=== PATIENT | male | born 1995 | race Caucasian/White ===

== ENCOUNTER 2022-12-07 10:01 | Emergency (ER) | payer MEDICAID ==
[~2022-12-07] VITALS: Ht 188 cm; Wt 127.0 kg
[2022-12-07 10:31] VITALS: TEMP 98.5; O2SAT 98
[2022-12-07] MEDS ORDERED: IBUP-2029 MT (12:22)
[2022-12-07] MEDS ORDERED: T3 PO (12:22)
[2022-12-07 12:30] VITALS: BP 108/76; PULSE 71; RESP 18
[2022-12-07] MEDS ORDERED: HYDROCODONE/ACETAMINOPHEN 5/325MG TABLET PO ONE (12:30)
== END 2022-12-07 13:41 | disposition home or self-care (01) ==
LOC: ER 11:28
DX: S62.91XA Unspecified fracture of right hand, initial encounter for closed fracture (principal); F41.9 Anxiety disorder, unspecified; W18.39XA Other fall on same level, initial encounter; Y93.89 Activity, other specified; Y92.89 Other specified places as the place of occurrence of the external cause; Y99.8 Other external cause status
CPT/HCPCS: 73120; 73130; 99283

== ENCOUNTER 2022-12-31 12:31 | Emergency (ER) | payer MEDICAID, OTHER ==
[~2022-12-31] VITALS: Ht 188 cm; Wt 118.0 kg
[~2022-12-31 12:31] MED LIST: IBUP-2029 MT; T3 PO
[2022-12-31 12:33] VITALS: BP 116/47; PULSE 63; RESP 16; TEMP 98.5; O2SAT 98
== END 2022-12-31 15:15 | disposition home or self-care (01) ==
LOC: ER 12:31
DX: S62.306A Unspecified fracture of fifth metacarpal bone, right hand, initial encounter for closed fracture (principal); X58.XXXA Exposure to other specified factors, initial encounter; Y93.89 Activity, other specified; Y92.89 Other specified places as the place of occurrence of the external cause; Y99.8 Other external cause status
CPT/HCPCS: 73130; 99283

== ENCOUNTER 2023-08-05 15:10 | Emergency (ER) | payer MEDICAID, OTHER ==
[~2023-08-05] VITALS: Ht 188 cm; Wt 127.0 kg
[2023-08-05 15:12] VITALS: BP 118/56; PULSE 82; RESP 16; TEMP 98.8; O2SAT 99
== END 2023-08-05 17:50 | disposition left against medical advice (07) ==
LOC: ER 15:10
DX: M79.644 Pain in right finger(s) (principal); Z53.21 Procedure and treatment not carried out due to patient leaving prior to being seen by health care provider
CPT/HCPCS: 99281

== ENCOUNTER 2023-12-29 11:52 | Emergency (ER) | payer MEDICAID, OTHER ==
[~2023-12-29] VITALS: Ht 188 cm; Wt 127.0 kg
[2023-12-29 11:53] VITALS: O2SAT 99
[2023-12-29 12:00] VITALS: BP 140/78; PULSE 98; RESP 16; TEMP 98.4; O2SAT 99
[2023-12-29] MEDS ORDERED: AMOX1TAB16 MT (12:22)
[2023-12-29] MEDS ORDERED: NEOM28.37 TP (12:22)
== END 2023-12-29 12:44 | disposition home or self-care (01) ==
LOC: ER 12:29
DX: L03.012 Cellulitis of left finger (principal)
CPT/HCPCS: 99283